=== PATIENT | male | born 1965 | race Caucasian/White ===

== ENCOUNTER → 2017-07-20 | Outpatient (CLI) | payer OTHER ==
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
== END ==
LOC: RT 12:46
PROVIDERS: ATTEND Neuromusculoskeletal Medicine, Sports Medicine
DX: Z02.71 Encounter for disability determination (principal)
CPT/HCPCS: 72100; 94060; 94729

== ENCOUNTER → 2018-11-18 | Outpatient (CLI) | payer BC ==
--- NOTE | 2018-11-18 09:21 | Diagnostic Imaging Report ---
INDICATION: Chronic low back pain. TIME OF EXAMINATION: 9:00 AM. TECHNIQUE: Multiple views of the lumbar spine were obtained. FINDINGS: The curvature and alignment are normal. The vertebral body heights are maintained. No fracture is seen. There is generalized lumbar spondylosis with variable disc space narrowing and marginal spurring. IMPRESSION: Mild lumbar spondylosis. No acute bony abnormality is detected. Dictated by: Dictated on workstation # [id number]
--- NOTE | 2018-11-18 09:22 | Diagnostic Imaging Report ---
INDICATION: Chronic back pain. TIME OF EXAMINATION: 8:59 AM. FINDINGS: The alignment appears normal. The vertebral body heights are maintained. No acute compression fracture is seen. The pedicles and paraspinous line are intact. There is generalized thoracic spondylosis with disc space narrowing and anterior osteophyte formation. IMPRESSION: Thoracic spondylosis. No acute bony abnormality is detected. Dictated by: Dictated on workstation # [id number]
== END ==
LOC: RAD FS 08:52
PROVIDERS: ATTEND Family Medicine
DX: M47.814 Spondylosis without myelopathy or radiculopathy, thoracic region (principal); M47.816 Spondylosis without myelopathy or radiculopathy, lumbar region
CPT/HCPCS: 72072; 72100

== ENCOUNTER → 2023-01-24 | Outpatient (CLI) | payer BC | LOC: PREOP 07:01 | PROVIDERS: ATTEND Surgery | DX: Z01.818 Encounter for other preprocedural examination (principal) ==

== ENCOUNTER 2023-02-02 10:48 | Day surgery (SDC) | payer BC ==
[~2023-02-02] VITALS: Ht 175 cm; Wt 95.4 kg
[~2023-02-02 10:48] MED LIST: ATOR10TA66 PO; CYCL10TA25 PO; GABA300C PO; HYDR-3817 PO; LISI20TA26 PO; OMEP20TA56 PO
[2023-02-02] MEDS ORDERED: LACTATED RINGERS 1,000 ML IV STA (10:54)
[2023-02-02 11:25] VITALS: BP 111/83
--- NOTE | 2023-02-02 11:30 | Progress Note-Pre Operative ---
Pre-Operative Progress Note Date of Available H&P: Jan 16, 2023 Date H&P Reviewed: Feb 02, 2023 Time H&P Reviewed: 11:29 History & Physical: H&P Reviewed, Patient Examed, No changes noted Pre-Operative Diagnosis: Screening AMELIA NOGUERA DO Feb 02, 2023 11:30
[2023-02-02] MEDS ORDERED: PROPOFOL INJECTION 50 ML IV ONE (12:15)
[2023-02-02] MEDS ORDERED: MIDAZOLAM 2 MG/2 ML (VERSED) VIAL ONE (12:16)
[2023-02-02 12:45] VITALS: BP 110/79
--- NOTE | 2023-02-02 12:46 | Anesthesia-General Post-Op ---
MAC Patient Condition Mental Status/LOC: Same as Preop Cardiovascular: Satisfactory Nausea/Vomiting: Absent Respiratory: Satisfactory Pain: Controlled Complications: Absent Post Op Complications Complications None Follow Up Care/Instructions Patient Instructions None needed. Anesthesiology Discharge Order Discharge Order Patient is doing well, no complaints, stable vital signs, no apparent adverse anesthesia problems. No complications reported per nursing. DUNG PINEDA CRNA Feb 02, 2023 12:46
[2023-02-02 12:50] VITALS: BP 109/80
--- NOTE | 2023-02-02 12:50 | Progress Note-Post Operative ---
Post-Operative Progess Note Surgeon (s)/Lubricating Specialist (s) Surgeon AMELIA NOGUERA DO Lubricating Specialist: none Pre-Operative Diagnosis Screening Post-Operative Diagnosis Polyps diverticula int hemorrhoids Procedure & Operative Findings Date of Procedure 02/02/23 Procedure Performed/Findings Colonoscopy with snare polypectomy PROCEDURE NOTE: After informed consent was obtained, the patient was brought to the endoscopy suite, placed in bed in left lateral decubitus position. He was administered IV sedation by the CARPET [employer] LAYER HELPER who then monitored his vitals the entire time, heart rate, blood pressure and pulse ox and the scope was inserted, pushed in and in the descending colon found a polyp; removed it with the snare. Then up to the ascending colon and found another polyp; also removed with snare. Finally, all the way to about 140 cm and pushed into the cecum, took a picture of appendiceal orifice and noted the ileocecal valve. Found a large polyp in the cecum, took a picture and then removed it with hot snare. Next, slowly withdrew the scope insufflating to look circumferentially at the [place] starting in the cecum and up the ascending colon where I found another large polyp and remove it with hot snare. Continued to the hepatic flexure, then down the transverse colon to the splenic flexure, into the descending colon and down into the sigmoid and finally into the rectal vault. I found 3 polyps in the rectal vault and removed them with the snare. Lastly, retroflexed the scope and took a picture of the internal hemorrhoids. I also took a picture of large diverticula found in the sigmoid and descending colon. The patient tolerated the procedure. He was recovered in endoscopy suite. Recommended for repeat colonoscopy in 3 years. Anesthesia Type IV sedation by CARPET [employer]UG LAYER HELPER Estimated Blood Loss Estimated blood loss (mL): scant Specimens/Packing Specimens Removed descending colon polyp Asc colon polyp x 2 cecal polyp rectal polyp x 3 AMELIA NOGUERA DO Feb 02, 2023 12:50
--- NOTE | 2023-02-02 12:52 | Endoscopy Discharge Instruct ---
Endo Procedure/Findings Findings 1.: Polyp 2.: Diverticulosis 3.: Internal Hemorrhoids Discharge Instructions - Activity: You might feel a little sleepy until tomorrow. This is due to the medicine you received to relax you. Until tomorrow, you should: NOT drive a car, operate machinery or power tools. NOT drink any alcoholic beverages. NOT make any important decisions or sign importortant papers. Do not return to work until tomorrow, unless otherwise instructed. Resume previous activities tomorrow. Diet: Start by taking liquids. If you tolerate liquids, advance to solid food. 1.: Colonscopy in 3 years Notify Physician - If you experience excessive bleeding, unusual abdominal pain, fever, or chest pain, contact your doctor immediately. Follow-Up: Other Follow up in my office in one week AMELIA NOGUERA DO Feb 02, 2023 12:52
[2023-02-02 12:55] VITALS: BP 138/83
[2023-02-02 13:03] VITALS: BP 138/83
== END 2023-02-02 13:10 | disposition home or self-care (01) ==
LOC: ENDO 10:48
PROVIDERS: ATTEND Surgery
DX: Z12.11 Encounter for screening for malignant neoplasm of colon (principal); D12.2 Benign neoplasm of ascending colon; D12.0 Benign neoplasm of cecum; D12.8 Benign neoplasm of rectum; K63.5 Polyp of colon; K62.1 Rectal polyp; K57.30 Diverticulosis of large intestine without perforation or abscess without bleeding; K64.8 Other hemorrhoids; F17.210 Nicotine dependence, cigarettes, uncomplicated